=== PATIENT | male | born 1995 | race American Indian/Alaskan Native ===

== ENCOUNTER 2018-08-10 01:37 | Emergency (ER) | payer OTHER ==
[2018-08-10 01:52] VITALS: BP 113/62
[2018-08-10] MEDS ORDERED: IBUPROFEN PO ONE (03:10)
[2018-08-10] MEDS ORDERED: BOOSTRIX IM ONE (03:10)
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
== END 2018-08-10 03:39 | disposition home or self-care (01) ==
LOC: ED 01:37
DX: S51.802A Unspecified open wound of left forearm, initial encounter (principal); Z87.891 Personal history of nicotine dependence; W34.00XA Accidental discharge from unspecified firearms or gun, initial encounter; Y93.89 Activity, other specified; Y92.89 Other specified places as the place of occurrence of the external cause; Y99.8 Other external cause status
CPT/HCPCS: 90471; 90715; 99282